=== PATIENT | male | born 1955 | race Caucasian/White ===

== ENCOUNTER 2022-01-10 08:13 | Outpatient (CLI) | payer BC | END 2022-01-10 08:14 | disposition home or self-care (01) | LOC: CSHWCC 08:13 | PROVIDERS: ATTEND Nurse Practitioner Family | DX: T81.89XD Other complications of procedures, not elsewhere classified, subsequent encounter (principal) | CPT/HCPCS: 97605; 99203; G0463 ==

== ENCOUNTER 2022-01-13 10:53 | Outpatient (CLI) | payer BC | END 2022-01-13 10:54 | disposition home or self-care (01) | LOC: CSHWCC 10:53 | PROVIDERS: ATTEND Nurse Practitioner Family | DX: T81.89XD Other complications of procedures, not elsewhere classified, subsequent encounter (principal) | CPT/HCPCS: 97605 ==